=== PATIENT | male | born 1985 | race Caucasian/White ===

== ENCOUNTER → 2022-01-01 | Outpatient (REF) | LOC: M PLAIMG 09:02 | PROVIDERS: ATTEND Internal Medicine | DX: R06.02 Shortness of breath (principal) ==

== ENCOUNTER → 2023-08-28 | Outpatient (REF) | LOC: M PLAIMG 09:59 | PROVIDERS: ATTEND Internal Medicine | DX: R06.02 Shortness of breath (principal) ==

== ENCOUNTER → 2024-04-15 | Outpatient (REF) | LOC: M PLAIMG 11:06 | PROVIDERS: ATTEND Nurse Practitioner Family | DX: J32.9 Chronic sinusitis, unspecified (principal) ==

== ENCOUNTER → 2025-03-08 | Outpatient (CLI) | payer OTHER, BC | LOC: M PLAIMG 16:27 | PROVIDERS: ATTEND Internal Medicine | DX: R52 Pain, unspecified (principal) ==